=== PATIENT | female | born 1990 | race Caucasian/White ===

== ENCOUNTER 2021-05-18 19:45 | Inpatient (IN) | payer MEDICAID ==
--- NOTE | 2021-05-18 23:32 | History and Physical Report ---
History of Present Illness Date of examination: 05/18/21 Date of admission: 05/18/21 Chief complaint: SROM at 7am today History of present illness: at 39.4wks by LMP c/w U/S. care done at [facility]. Pt had SROM at 7am at home and did not come to hospital as recommend. Pt admits to movement and denies vaginal bleeding. Denies headache. Past History Past Medical History: other (anemia) Past Surgical History: no surgical history Family/Genetic History: none Social history: no significant social history - Obstetrical History Expected Date of Delivery: 05/21/21 Actual Gestation: 39 Week(s) 5 Day(s) : 1 Para: 0 Number of Living Children: 0 Medications and Allergies Allergies Allergy/AdvReac Type Severity Reaction Status Date / Time No Known Allergies Allergy Verified 05/18/21 23:40 Review of Systems All systems: negative (leakage of fluid) - Vital Signs Vital signs: Vital Signs Temp Pulse Resp BP Pulse Ox 98.6 F 87 16 121/83 99 05/18/21 20:35 05/18/21 20:35 05/18/21 20:35 05/18/21 20:35 05/18/21 20:35 Temp Pulse Resp BP Pulse Ox 98.6 F 91 H 16 121/83 98 05/18/21 20:35 05/18/21 23:21 05/18/21 20:35 05/18/21 20:35 05/18/21 23:21 - Physical Exam Breasts: Positive: deferred Cardiovascular: Regular rate Lungs: Positive: Normal air movement Abdomen: Positive: normal appearance, soft Genitourinary (Female): Positive: normal external genitalia Extremities: Positive: normal - Obstetrical FHR: category 1 Uterine Contraction Monitor Mode: External Cervical Dilatation: 1 Cervical Effacement Percentage: 70 station: -3 Uterine Contraction Pattern: Regular Uterine Contraction Intensity: Mild Results Result Diagrams: 05/18/21 23:50 Abnormal lab results 05/18/21 Range/Units 21:10 Membranes Rupture Positive A (Negative) All other labs normal. Assessment and Plan Term with SROM almost 18hrs at home, GBS negative 1. Admit to labor and delivery 2. augment with pitocin 3. Start Amp for prolong rupture of membranes 4. May have IV pain med or epidural when desired Expect
[2021-05-18] MEDS ORDERED: miSOPROStol 200 MCG TAB PR PRN (23:34)
[2021-05-18] MEDS ORDERED: ONDANSETRON 4 MG/2 ML INJ IV PRN (23:34)
[2021-05-18] MEDS ORDERED: METHYLERGONOVINE MALEATE 0.2 MG/ML VIAL IM PRN (23:34)
[2021-05-18] MEDS ORDERED: NalbUPHINE 10 MG/1 ML INJ IV PRN (23:34)
[2021-05-18] MEDS ORDERED: AMPICILLIN/NS 2 GM/100 ML 2 GM/100 ML BAG IV ONE (23:34)
[2021-05-18] MEDS ORDERED: OXYTOCIN 10 UNIT/1 ML INJ IM PRN (23:34)
[2021-05-18] MEDS ORDERED: PROMETHAZINE 25 MG TAB PO PRN (23:34)
[2021-05-18] MEDS ORDERED: ePHEDrine SULFATE 50 MG/1 ML INJ IV PRN (23:34)
[2021-05-18] MEDS ORDERED: MINERAL OIL 30 ML ORAL LIQD PO PRN (23:34)
[2021-05-18] MEDS ORDERED: fentaNYL 100 MCG/2 ML INJ IV PRN (23:34)
[2021-05-18] MEDS ORDERED: TERBUTALINE 1 MG/1 ML INJ SUB-Q PRN (23:34)
[2021-05-18] MEDS ORDERED: CARBOPROST TROMETHAMINE 250 MCG/1 ML INJ IM PRN (23:34)
[2021-05-18] MEDS ORDERED: LOPERAMIDE 2 MG CAP PO PRN (23:34)
[2021-05-18] MEDS ORDERED: LIDOCAINE (2%) 20 MG/1 ML VIAL 20 ML MDV INFILTRATI ONE (23:34)
[2021-05-18] MEDS ORDERED: OXYTOCIN DRIP 30 UNITS/500 ML BAG IV SCH ×2 (23:45)
[2021-05-19 00:44] LABS: Hemoglobin 10.9 gm/dl (10.1-14.3); Mean Corpuscular HGB Conc 34 % (30-34); Mean Corpuscular Volume 88 fl (79-97); Platelet Count 259 K/mm3 (140-440); Red Blood Count 3.63 M/mm3 (3.65-5.03); Red Cell Distribution Width 15.8 % (13.2-15.2)
[2021-05-19] MEDS: AMPICILLIN/NS 1 GM/50 ML 1 GM/50 ML BAG IV SCH ×2 (05:01→13:22)
--- NOTE | 2021-05-19 06:56 | Event Note ---
Date: 05/19/21 pt evaluated and having painful ctx inspite of IV pain med. Nurse states pt to receive epidural now. Pelvic /-3 and Ctx every 3-4mins and pt has received PCN x2 doses. FHR category I. Expect .
[2021-05-19] MEDS ORDERED: ePHEDrine SULFATE 50 MG/1 ML INJ IV PRN (07:33)
[2021-05-19] MEDS ORDERED: ONDANSETRON 4 MG/2 ML INJ IV PRN (07:33)
[2021-05-19] MEDS ORDERED: diphenhydrAMINE 50 MG/ML VIAL IV PRN (07:33)
[2021-05-19] MEDS ORDERED: NalbUPHINE 10 MG/1 ML INJ IV PRN (07:33)
[2021-05-19] MEDS ORDERED: NALOXONE 2 MG/2 ML INJ IV PRN (07:33)
[2021-05-19] MEDS ORDERED: LACTATED RINGERS 250 ML IV SOLN IV ONE (07:33)
--- NOTE | 2021-05-19 07:34 | Anesthesia Consultation ---
Anesthesia Consult and Med Hx Date of service: 05/19/21 - Airway Anesthetic Teeth Evaluation: Good ROM Head & Neck: Adequate Mental/Hyoid Distance: Adequate Mallampati Class: Class II Intubation Access Assessment: Probably Good - Pulmonary Exam CTA: Yes - Cardiac Exam Cardiac Exam: RRR - Pre-Operative Health Status ASA Pre-Surgery Classification: ASA2 Proposed Anesthetic Plan: Epidural - Pulmonary Hx Smoking: No Hx Asthma: No COPD: No Hx Pneumonia: No Hx Sleep Apnea: No - Cardiovascular System Hx Hypertension: No Hx Heart Attack/AMI: No Hx Angina: No - Gastrointestinal Hx Gastroesophageal Reflux Disease: No - Endocrine Hx Renal Disease: No Hx End Stage Renal Disease: No Hx Liver Disease: No Hx Insulin Dependent Diabetes: No Hx Non-Insulin Dependent Diabetes: No - Other Systems Hx Alcohol Use: No
--- NOTE | 2021-05-19 07:35 | Progress Note ---
Labor Epidural - Labor Epidural Start Time: 07:20 Stop Time: 07:33 Performed by:: SANDRINE VÁSQUEZ ([facility] Procedure: Patient is requesting epidural for labor and pain. H&P, labs were reviewed. Patient IDed, H&P reviewed, all questions and concerns were answered, and consent was signed. Timeout was performed at bedside. Patient in sitting position. Sterile prep and drape was performed. 3ml of 1% lidocaine skin wheal at L[3]- L [4]. 18-gauge Alter Eco epidural needle was advanced to loss of resistance with air technique 6cm. Negative CSF negative blood. Epidural catheter advanced to [11] centimeters. [negative] Aspiration [negative] test dose. Sterile dressing applied. Patient tolerated procedure.
[2021-05-19] MEDS: fentaNYL-BUPIV 2 MCG/ML-0.125% 200 MCG/100 ML BAG EPIDURAL SCH ×2 (08:14→18:02)
[2021-05-19] MEDS: LACTATED RINGERS 1,000 ML IV SCH ×4 (08:14→15:43)
--- NOTE | 2021-05-19 09:28 | Event Note ---
Date: 05/19/21 Small amount of blood seen on pad so performed SVE. SVE /-2. Abdomen palpates soft. IUPC placed to better evaluate contractions. IUPC went in easily with no blood seen with placement. Changed dahiana pad and will monitor closely. Consulted Dr. España re: small amount of vaginal bleeding and interventions taken.
[2021-05-19 11:43] LABS: Hepatitis C Virus Antibody Nonreactive (NonReactive)
--- NOTE | 2021-05-19 12:19 | Event Note ---
Date: 05/19/21 Came and saw patient and reviewed FHR tracing. Late decelerations of FHR noted; moderate to minimal variability. SVE cervix unchanged; irregular contractions. Uterus and abdomen palpate soft. Bloody show noted. Pitocin discontinued and patient repositioned to left lateral position. Oxygen per face mask at [address] España at 12:10 pm and notified her of FHR tracing and late decelerations, heavy bloody show, and inerventions taken. Dr. España ordered stat CBC and orders put in/lab notified. Temp. 98.4.
--- NOTE | 2021-05-19 13:51 | Event Note ---
Date: 05/19/21 FHR baseline 150-155 with minimal to moderate variability and periodic late decelerations despite interventions. Called Dr. España and informed her of FHR tracing, vaginal bleeding, cervical exam, interventions taken. Requested that Dr. España come in and expedite delivery. BPP ordered per Dr. España request.
--- NOTE | 2021-05-19 14:59 | Ultrasound Report ---
ULTRASOUND BIOPHYSICAL PROFILE OB ULTRASOUND INDICATION: EFW. COMPARISON: None available. FINDINGS: breathing movement = 2 Gross body movement = 2 tone = 2 Qualitative amniotic fluid volume = 2 Total biophysical score = 8/8 Presentation is Cephalic. heart rate is 138 beats per minute. Biparietal diameter 9.7 cm, 39 weeks 4 days Head circumference 32.6 cm, 37 weeks 0 days Abdominal circumference 32.6 cm, 36 weeks 4 days Femur length 7.5 cm, 38 weeks 3 days Estimated weight at this time is 7 lbs. 1 oz. IMPRESSION: 1. biophysical profile = /8 2. Estimated weight at this time is 7 pounds, 1 ounce. Signer Name: Freddie Goldstein MD Signed: 05/19/2021 2:55 PM Workstation Name: [id number]
[2021-05-19] MEDS: ACETAMINOPHEN 325 MG TAB PO PRN ×2 (15:28→23:46)
[2021-05-19] MEDS: GENTAMICIN 100 MG in SODIUM CHLORIDE 0.9% 100 ML IV SCH ×2 (15:42→23:46)
[2021-05-19 17:26] LABS: Hematocrit 32.1 % (30.3-42.9); Hemoglobin 11.1 gm/dl (10.1-14.3); Mean Corpuscular HGB Conc 35 % (30-34); Mean Corpuscular Volume 87 fl (79-97); Platelet Count 246 K/mm3 (140-440); Red Blood Count 3.69 M/mm3 (3.65-5.03); Red Cell Distribution Width 15.7 % (13.2-15.2)
[2021-05-19] MEDS ORDERED: AMPICILLIN/NS 2 GM/100 ML 2 GM/100 ML BAG IV SCH (18:00)
--- NOTE | 2021-05-19 18:01 | Event Note ---
Date: 05/19/21 Gentamicin ordered at 15:15 due to temp of 99 and increase FHR baseline. Patient is receiving ampicillin and gentamicin and has received Tylenol. Pitocin augmentation of labor continues. FHR with mild tachycardia (165-170) and MD has been notified. Cervix is now 8/80/-1.
[2021-05-19 18:05] LABS: Alanine Aminotransferase 7 units/L (7-56); Albumin 2.8 g/dL (3.9-5); BUN/Creatinine Ratio 20; Blood Urea Nitrogen 10 mg/dL (7-17); Hemolysis Index 11
[2021-05-19] MEDS ORDERED: ACETAMINOPHEN 325 MG TAB PO ONE (18:17)
--- NOTE | 2021-05-19 20:43 | Event Note ---
Date: 05/19/21 E .
[2021-05-20] MEDS ORDERED: WITCH HAZEL/ GLYCERIN PAD TP PRN ×2 (01:42→01:53)
[2021-05-20] MEDS ORDERED: LANOLIN/ZINC/DIMETHICONE (LANSINOH) 7 GM TP PRN (01:42)
--- NOTE | 2021-05-20 01:46 | Procedure Note ---
OB Delivery Note - Delivery Date of Delivery: 05/20/21 Surgeon: VARUN BOONE - Vaginal Delivery presentation: vertex Delivery position: OA Intrapartum events: prolonged labor- > = 20hr, shoulder dystocia, other(please specify) (prolonged rupture of membranes; suspected chorioamnionitis) Delivery induction: none Delivery augmentation: pitocin Delivery monitor: external FHT, external uterine, internal uterine Route of delivery: Delivery placenta: spontaneous Delivery cord: nuchal cord, 3 umbilical vessels Delivery laceration: 3rd degree (3rd degree perineal laceration repaired by Dr. España; please see Dr. España note) Delivery repair: vicryl Anesthesia: epidural Delivery comments: Spontaneous vaginal delivery at 00:41 of liveborn female weighing 3.72 kg over 3rd degree perineal laceration with apgars of 8/9. Epidural anesthesia. Nuchal cord times 1, manually reduced. Mild shoulder dystocia resolved by delivery of posterior arm. Baby placed skin to skin with mom immediately after delivery. Baby dried with towels and suctioned with bulb syringe. Spontaneous cry and respirations. 3 vessel cord double clamped and cut. Baby taken to radiant warmer for further suctioning and evaluation. Spontaneous delivery of intact placenta and membranes by Dr. España. Pitocin to IV fluids after delivery of placenta. Fundus firm and midline. QBL being calculated by patient's nurse. 3rd degree perineal laceration repaired by Dr. España (see Dr. España note). Sponge count correct. Mother and baby stable. Dr. España present in room during pushing and delivery of baby.
--- NOTE | 2021-05-20 01:51 | Event Note ---
Date: 05/20/21 I was present for the delivery done by DAREN Curtis. pt sustained "M' shaped perineal laceration that extended to 3rd degree laceration confirmed with rectovaginal exam. Anal sphincter repaired with interrupted 0-vicryl suture. M shaped vaginal mucosa laceration reapproximated using 2-0 chromic running locked suture and the remaining perineal muscles with good hemostasis. Pt counseled nothing per rectum and reynolds cath to be replaced with hematuria prior to delivery. Ancef 2gm to be given with inflammed perineal tissue and protracted labor with chorioamnionitis. Pt had epidural with good effective for the entire repair. Pt not to have sitz bath . Pt to get dermoplast on day #1. Pt stable and doing fine.
[2021-05-20] MEDS ORDERED: BENZOCAINE/MENTHOL 20/0.5% TOP SPRAY 56 GM TP PRN (01:52)
[2021-05-20 08:13] LABS: Bacteria,Urine 1+ /HPF (Negative); Bilirubin,Urine NEG (Negative); Blood,Urine LG (Negative); Color,Urine Yellow (Yellow)
[2021-05-20 08:28] LABS: WBC,Urine < 1.0 /HPF (0.0-6.0)
[2021-05-20] MEDS: DOCUSATE SODIUM 100 MG CAP PO SCH ×2 (09:20→23:14)
--- NOTE | 2021-05-20 09:56 | Post Anesthesia Evaluation ---
- Post Anesthesia Evaluation Patient Participated: Yes Airway Patent: Yes Stable Respiratory Function: Yes Nausea/Vomiting: No Temp > 96.8F: Yes Pain Manageable: Yes Adequeate Hydration: Yes Anesthesia Complications: No Block Receding Appropriately: No (Patient is still weak bilaterally. Will return to check on her later today to reevaluate.) Patient on Ventilator: No
[2021-05-20] MEDS: LACTATED RINGERS 1,000 ML IV SCH (11:17)
[2021-05-20] MEDS: IBUPROFEN 600 MG TAB PO SCH ×3 (11:25→23:14)
[2021-05-20] MEDS: HYDROcodone/ACETAMINOPHEN 5-325 MG TAB PO PRN ×2 (11:25→17:52)
[2021-05-20] MEDS ORDERED: HYDROCORTISONE 25 MG RECTAL SUPP PR PRN (12:00)
[2021-05-20 15:29] LABS: Hematocrit 25.7 % (30.3-42.9); Hemoglobin 8.5 gm/dl (10.1-14.3)
--- NOTE | 2021-05-20 16:09 | Event Note ---
Date: 05/20/21 Rebroadened antibiotics to amp and gent for presumed chorioamnonitis
[2021-05-20] MEDS: AMPICILLIN/NS 2 GM/100 ML 2 GM/100 ML BAG IV SCH ×2 (17:10→23:20)
[2021-05-20] MEDS: GENTAMICIN/NS 100 MG/100 ML 100 MG/100 ML BAG IV SCH (18:14)
[2021-05-21] MEDS: GENTAMICIN/NS 100 MG/100 ML 100 MG/100 ML BAG IV SCH ×4 (02:16→18:06)
[2021-05-21] MEDS: IBUPROFEN 600 MG TAB PO SCH ×3 (05:16→21:54)
[2021-05-21] MEDS: AMPICILLIN/NS 2 GM/100 ML 2 GM/100 ML BAG IV SCH ×3 (05:17→18:06)
[2021-05-21] MEDS: DOCUSATE SODIUM 100 MG CAP PO SCH ×2 (10:15→21:54)
--- NOTE | 2021-05-21 12:28 | Post Anesthesia Evaluation ---
- Post Anesthesia Evaluation Patient Participated: Yes Airway Patent: Yes Stable Respiratory Function: Yes Nausea/Vomiting: No Temp > 96.8F: Yes Pain Manageable: Yes Adequeate Hydration: Yes Anesthesia Complications: No Block Receding Appropriately: Yes (Pt has full sensation and moderate strength back in her LE, but still feels she is too weak to walk. Discussed with her provider and will place additional orders.) Patient on Ventilator: No
[2021-05-21] MEDS: HYDROcodone/ACETAMINOPHEN 5-325 MG TAB PO PRN (14:37)
--- NOTE | 2021-05-21 15:01 | XRay Report ---
X-RAY BILATERAL HIPS 2 VIEWS WITH PELVIS INDICATION / CLINICAL INFORMATION: PPD#1 vag delivery, can't ambulate; coccyx fractu COMPARISON: None available. FINDINGS: BONES / JOINT(S): There is marked diastasis of the pubic symphysis, with 3.5 cm of separation between the pubic bones. Otherwise, no acute displaced fracture identified. There is no significant arthriti s. SOFT TISSUES: No significant abnormality. ADDITIONAL FINDINGS: None. IMPRESSION: 1. Marked pubic symphysis diastasis. Signer Name: Annie Saeed MD Signed: 05/21/2021 2:57 PM Workstation Name: [id number]
--- NOTE | 2021-05-21 15:03 | XRay Report ---
X-RAY SPINE SACRUM/COCCYX, 2 VIEWS INDICATION / CLINICAL INFORMATION: pain in hip after vag del/possible coccyx fracture COMPARISON: Hip radiograph same day FINDINGS: BONES / JOINT(S): Marked diastases of the pubic symphysis with approximately 3.5 cm of separation. Ot herwise, no acute displaced fracture identified. SOFT TISSUES: No significant abnormality. ADDITIONAL FINDINGS: None. IMPRESSION: 1. Marked pubic symphysis diastasis. Signer Name: Annie Saeed MD Signed: 05/21/2021 2:59 PM Workstation Name: [id number]
--- NOTE | 2021-05-21 16:51 | Progress Note ---
Assessment and Plan PPD#1 with marked pubis diastases 1. 2 view pelvic xray with marked diastases. Consult to be done to ortho pedics vs gen surgery if ortho not available 2. Pt to get pelvic girdle and pain mgt and physical therapy until evaluation done 3. Will give iron supplement and vitamin C for asymptomatic anemia 4. Routine care Subjective Date of service: 05/21/21 Principal diagnosis: PPD#1 with marked pubic diastases Interval history: nurse called me stating patient unable to ambulate due to pain at hips. Vag bleed small. Diet tolerated. pt sitting in chair and too painful to return to bed at this time. Objective - Constitutional Vitals: Vital Signs - 12hr 05/21/21 05/21/21 05/21/21 05:16 06:16 08:02 Temperature 97.9 F Pulse Rate 105 H Respiratory 18 18 19 Rate Blood Pressure 102/59 O2 Sat by Pulse 96 Oximetry 05/21/21 12:25 Temperature 98.4 F Pulse Rate 110 H Respiratory 18 Rate Blood Pressure 90/58 O2 Sat by Pulse 97 Oximetry General appearance: Present: mild distress - Respiratory Respiratory effort: normal - Cardiovascular Rhythm: regular Extremities: No edema - Genitourinary Female genitourinary: other (Fundus firm, non-tender below umbilicus) - Neurologic Neurologic: other (diminished movement of lower extremities when ambulant) - Psychiatric Psychiatric: cooperative - Labs CBC & Chem 7: 05/20/21 15:14 05/19/21 17:15 Medications & Allergies - Medications Allergies/Adverse Reactions: Allergies No Known Allergies Allergy (Verified 05/18/21 23:40) Home Medications: Home Medications Medication Instructions Recorded Confirmed Last Taken Type No Known Home Medications [No 05/20/21 05/20/21 Unknown History Reported Home Medications] Active Medications: Generic Name Dose Route Start Last Admin Trade Name Freq PRN Reason Stop Dose Admin Acetaminophen 650 mg 05/18/21 23:34 05/19/21 23:46 Acetaminophen 325 Mg Tab PO 650 mg Q4H PRN Administration Pain, Mild (1-3) Hydrocodone Bitart/Acetaminophen 2 each 05/20/21 01:42 05/20/21 17:52 Hydrocodone/Acetaminophen 5-325 Mg Tab PO 2 each Q6H PRN Administration Pain, Moderate (4-6) Benzocaine/Menthol 1 spray 05/20/21 01:52 05/20/21 12:08 Benzocaine/Menthol 20/0.5% Top [place] 56 Gm TP 1 spray TID PRN Administration Pain, Mild (1-3) Carboprost Tromethamine 250 mcg 05/18/21 23:34 Carboprost Tromethamine 250 Mcg/1 Ml Inj IM ONCE PRN Uterine Bleeding Diphenhydramine HCl 12.5 mg 05/19/21 07:33 Diphenhydramine 50 Mg/Ml Vial IV Q2H PRN Itching Docusate Sodium 100 mg 05/20/21 02:00 05/21/21 10:15 Docusate Sodium 100 Mg Cap PO 100 mg BID KATHY Administration Ephedrine Sulfate 10 mg 05/19/21 07:33 Ephedrine Sulfate 50 Mg/1 Ml Inj IV Q2M PRN Hypotension Hydrocortisone Acetate 25 mg 05/20/21 12:00 Hydrocortisone 25 Mg Rectal Supp OR BID PRN Hemorrhoids Oxytocin/Sodium Chloride 30 units in 500 mls @ 2 mls/hr 05/18/21 23:45 19:00 Pitocin/Ns 30 Unit/500ml IV 4 ml/hr TITR KATHY 4 mls/hr Titration Protocol Lactated Ringer's 1,000 mls @ 125 mls/hr 05/18/21 23:45 05/20/21 11:17 Lactated Ringers IV 125 mls/hr DIRECT KATHY Administration Oxytocin/Sodium Chloride 30 units in 500 mls @ 40 mls/hr 05/18/21 23:45 Pitocin/Ns 30 Unit/500ml IV TITR KATHY Protocol Fentanyl/Bupivacaine/Sodium Chlor 200 mcg in 100 mls @ 12 mls/hr 05/19/21 08:00 05/19/21 18:02 Fentanyl-Bupiv 2 Mcg/Ml-0.125% EPIDURAL 12 mls/hr TITR KATHY Administration Protocol Ampicillin Sodium 2 gm in 100 mls @ 100 mls/hr 05/20/21 17:00 05/21/21 11:24 Ampicillin/Ns 2 Gm/100 Ml IV 100 mls/hr Q6H KATHY Administration Protocol Gentamicin Sulfate/Sodium Chloride 100 mg in 100 mls @ 200 mls/hr 05/20/21 18:00 05/21/21 10:14 Gentamicin/Ns 100 Mg/100 Ml IV 200 mls/hr Q8H KATHY Administration Ibuprofen 600 mg 05/20/21 02:00 05/21/21 05:16 Ibuprofen 600 Mg Tab PO 600 mg Q6H KATHY Administration Loperamide HCl 2 mg 05/18/21 23:34 Loperamide 2 Mg Cap PO ONCE PRN give with Hemabate Methylergonovine Maleate 0.2 mg 05/18/21 23:34 Methylergonovine Maleate 0.2 Mg/Ml Vial IM ONCE PRN Uterine Bleeding Multi-Ingredient Ointment 1 applic 05/20/21 01:42 Lanolin/Zinc/Dimethicone (Lansinoh) 7 Gm TP PRN PRN Sore Nipples Nalbuphine HCl 2.5 mg 05/19/21 07:33 Nalbuphine 10 Mg/1 Ml Inj IV Q2H PRN Itching Naloxone HCl 0.2 mg 05/19/21 07:33 Naloxone 2 Mg/2 Ml Inj IV Q5M PRN Respiratory sedation Ondansetron HCl 4 mg 05/19/21 07:33 Ondansetron 4 Mg/2 Ml Inj IV Q8H PRN Nausea And Vomiting Oxytocin 10 unit 05/18/21 23:34 Oxytocin 10 Unit/1 Ml Inj IM ONCE PRN Uterine Bleeding Sodium Chloride 10 ml 05/20/21 02:00 Sodium Chloride 0.9% 10 Ml Flush Syringe IV PRN PRN LINE FLUSH Witch Kathy/Glycerin 1 each 05/20/21 01:53 05/20/21 16:19 Witch Kathy/ Glycerin Pad TP 1 each PRN PRN Administration Hemorrhoids
[2021-05-21] MEDS ORDERED: FERROUS SULFATE 325 MG TAB PO SCH (22:00)
[2021-05-21] MEDS: ASCORBIC ACID 500 MG TAB PO SCH (22:02)
[2021-05-22] MEDS: AMPICILLIN/NS 2 GM/100 ML 2 GM/100 ML BAG IV SCH ×2 (00:31→06:18)
[2021-05-22] MEDS: LACTATED RINGERS 1,000 ML IV SCH (01:05)
[2021-05-22] MEDS: GENTAMICIN/NS 100 MG/100 ML 100 MG/100 ML BAG IV SCH (02:19)
[2021-05-22] MEDS: HYDROcodone/ACETAMINOPHEN 5-325 MG TAB PO PRN ×2 (03:09→13:39)
[2021-05-22] MEDS: IBUPROFEN 600 MG TAB PO SCH ×4 (06:19→17:55)
--- NOTE | 2021-05-22 10:08 | Event Note ---
Date: 05/22/21 plan for scheduled NSAIDS and tylenol PT if unable to ambulate Pelvic girdle and pelvic rest does not need Gen Surgery at this time, will re-evaluate in period. Saeid Dai MD
[2021-05-22] MEDS: ASCORBIC ACID 500 MG TAB PO SCH ×2 (10:15→22:12)
--- NOTE | 2021-05-22 10:59 | Progress Note ---
Assessment and Plan A: PP Day #2 Pubic Diastases Asymptomatic Anemia P: Follow Routine Orders Pelvic Girdle and Pelvic Rest Physical Therapy Consult Tylenol 650mg PO q 4 hours/Motrin 600mg q [address] Dai Infed 100mg Im x 1 dose Subjective - Subjective Date of service: 05/22/21 Principal diagnosis: PPD#1 with marked pubic diastases Patient reports: appetite normal, voiding normally, pain poorly controlled, other (Unable to properly ambulate due to pubic diastases, able to ambulate backwards better than forward) [place]: doing well, bottle feeding Objective - Vital Signs Latest vital signs: Vital Signs Temp Pulse Resp BP Pulse Ox Pulse Ox 05/22/21 08:31 97.8 F 102 H 18 105/69 97 05/22/21 08:26 100 05/22/21 06:19 18 05/22/21 03:09 18 05/22/21 00:26 98.4 F 101 H 18 99/66 97 05/21/21 22:15 100 05/21/21 21:54 18 05/21/21 18:21 100 05/21/21 16:51 100 05/21/21 15:31 98.2 F 104 H 18 110/65 93 05/21/21 14:00 100 05/21/21 12:25 98.4 F 110 H 18 90/58 97 05/21/21 12:00 100 Intake and Output 05/21/21 05/22/21 05/22/21 22:59 06:59 14:59 Intake Total 560 100 Output Total 500 Balance 560 100 -500 Intake: IV 200 100 AMPICILLIN/NS 2 GM/100 ML 100 100 2 gm In 100 ml @ 100 mls /hr IV Q6H KATHY Rx#: [id number] GENTAMICIN/NS 100 MG/100 100 ML 100 mg In 100 ml @ 200 mls/hr IV Q8H KATHY Rx#: [id number] Oral 360 Output: Urine 500 Void 500 Other: Total, Intake Amount 240 Total, Output Amount 500 # Voids Indwelling Catheter 1 Void 1 - Exam Breasts: Present: normal Cardiovascular: Present: Regular rate Lungs: Present: Clear to auscultation, Normal air movement Abdomen: Present: normal appearance, soft, normal bowel sounds Uterus: Present: normal, firm, fundal height above umbilicus Extremities: Present: normal
[2021-05-22] MEDS ORDERED: ACETAMINOPHEN 325 MG TAB PO PRN (11:00)
[2021-05-22] MEDS: ACETAMINOPHEN 325 MG TAB PO SCH ×3 (11:20→22:13)
[2021-05-22] MEDS ORDERED: IRON DEXTRAN COMPLEX 100 MG/2 ML INJ IM SCH (12:00)
[2021-05-22] MEDS: DOCUSATE SODIUM 100 MG CAP PO SCH ×2 (13:37→22:12)
[2021-05-23] MEDS: ACETAMINOPHEN 325 MG TAB PO SCH ×3 (03:00→11:34)
[2021-05-23] MEDS: IBUPROFEN 600 MG TAB PO SCH ×2 (05:00→11:34)
[2021-05-23] MEDS: ASCORBIC ACID 500 MG TAB PO SCH (09:38)
[2021-05-23] MEDS: DOCUSATE SODIUM 100 MG CAP PO SCH (09:38)
--- NOTE | 2021-05-23 10:18 | Progress Note ---
Assessment and Plan A: S/P with pubic diastases Pt has no insurance P:Continue routine pp orders Obtain walker for ambulation Case mtg re home help with ambulation Will d/c home once home help issue is resolved Subjective - Subjective Date of service: 05/23/21 Principal diagnosis: PPD#1 with marked pubic diastases Patient reports: appetite normal, voiding normally, pain well controlled, other (poor ambulation) [place]: doing well, bottle feeding Objective - Vital Signs Latest vital signs: Vital Signs Temp Pulse Resp BP Pulse Ox Pulse Ox 05/23/21 08:04 98.3 F 113 H 20 113/73 96 05/23/21 07:45 98 05/23/21 00:40 112 H 05/23/21 00:05 98.1 F 124 H 18 120/72 96 05/22/21 21:00 100 05/22/21 18:37 100 05/22/21 16:39 98.0 F 102 H 18 115/77 98 05/22/21 16:00 100 05/22/21 12:00 100 Intake and Output 05/22/21 05/23/21 05/23/21 22:59 06:59 14:59 Intake Total 120 Output Total 300 Balance -300 120 Intake: Oral 120 Output: Urine 300 Void 300 Other: Total, Intake Amount 120 Total, Output Amount 300 # Voids Void 1 1 - Exam Breasts: Present: normal Abdomen: Present: normal appearance, soft, normal bowel sounds Vulva: both: normal Uterus: Present: normal, firm, fundal height below umbilicus Extremities: Present: normal Incision: Present: normal, intact
[2021-05-23] MEDS ORDERED: FERROUS SULFATE 325 MG TAB PO SCH (12:00)
--- NOTE | 2021-05-23 13:51 | Event Note ---
Date: 05/23/21 [employer] contacted the ortho surgeon and he will come and see pt before d/c home.
[2021-05-23 14:05] LABS: Hematocrit 23.7 % (30.3-42.9); Mean Corpuscular HGB Conc 34 % (30-34); Mean Corpuscular Volume 87 fl (79-97); Platelet Count 309 K/mm3 (140-440); Red Blood Count 2.72 M/mm3 (3.65-5.03); Red Cell Distribution Width 15.7 % (13.2-15.2)
--- NOTE | 2021-05-23 14:49 | Consultation ---
History of Present Illness - [facility] Consult date: 05/23/21 Consult reason: joint pain History of present illness: 31 y/o female with c/o anterior pelvic pain following delivery of her 1st child, plain xrays taken reveal 3.5 cm diastasis at symphsis... Past History Social history: no significant social history Medications and Allergies Allergies Allergy/AdvReac Type Severity Reaction Status Date / Time No Known Allergies Allergy Verified 05/18/21 23:40 Home Medications Medication Instructions Recorded Confirmed Last Taken Type No Known Home Medications [No 05/20/21 05/20/21 Unknown History Reported Home Medications] Active Meds: Active Medications Acetaminophen (Acetaminophen 325 Mg Tab) 650 mg PO Q4H [facility] Last Admin: 05/23/21 11:34 Dose: 650 mg Documented by: Hydrocodone Bitart/Acetaminophen (Hydrocodone/Acetaminophen 5-325 Mg Tab) 2 each PO Q6H PRN PRN Reason: Pain, Moderate (4-6) Last Admin: 05/22/21 13:39 Dose: 2 each Documented by: Ascorbic Acid (Ascorbic Acid 500 Mg Tab) 500 mg PO BID [facility] Last Admin: 05/23/21 09:38 Dose: 500 mg Documented by: Benzocaine/Menthol (Benzocaine/Menthol 20/0.5% Top [place] 56 Gm) 1 spray TP TID PRN PRN Reason: Pain, Mild (1-3) Last Admin: 05/20/21 12:08 Dose: 1 spray Documented by: Carboprost Tromethamine (Carboprost Tromethamine 250 Mcg/1 Ml Inj) 250 mcg IM ONCE PRN PRN Reason: Uterine Bleeding Diphenhydramine HCl (Diphenhydramine 50 Mg/Ml Vial) 12.5 mg IV Q2H PRN PRN Reason: Itching Docusate Sodium (Docusate Sodium 100 Mg Cap) 100 mg PO BID [facility] Last Admin: 05/23/21 09:38 Dose: 100 mg Documented by: Ephedrine Sulfate (Ephedrine Sulfate 50 Mg/1 Ml Inj) 10 mg IV Q2M PRN PRN Reason: Hypotension Ferrous Sulfate (Ferrous Sulfate 325 Mg Tab) 325 mg PO BID [facility] Last Admin: 05/23/21 11:34 Dose: 325 mg Documented by: Hydrocortisone Acetate (Hydrocortisone 25 Mg Rectal Supp) 25 mg [place] BID PRN PRN Reason: Hemorrhoids Oxytocin/Sodium Chloride (Pitocin/Ns 30 Unit/500ml) 30 units in 500 mls @ 2 mls/hr IV TITR KATHY; Protocol Last Titration: 05/19/21 19:00 Dose: 4 ml/hr, 4 mls/hr Documented by: Lactated Ringer's (Lactated Ringers) 1,000 mls @ 125 mls/hr IV DIRECT KATHY Last Admin: 05/22/21 01:05 Dose: 125 mls/hr Documented by: Oxytocin/Sodium Chloride (Pitocin/Ns 30 Unit/500ml) 30 units in 500 mls @ 40 m ls/hr IV TITR KATHY; Protocol Fentanyl/Bupivacaine/Sodium Chlor (Fentanyl-Bupiv 2 Mcg/Ml-0.125%) 200 mcg in 100 mls @ 12 mls/hr EPIDURAL TITR KATHY; Protocol Last Admin: 05/19/21 18:02 Dose: 12 mls/hr Documented by: Ibuprofen (Ibuprofen 600 Mg Tab) 600 mg PO Q6H KATHY Last Admin: 05/23/21 11:34 Dose: 600 mg Documented by: Loperamide HCl (Loperamide 2 Mg Cap) 2 mg PO ONCE PRN PRN Reason: give with Hemabate Methylergonovine Maleate (Methylergonovine Maleate 0.2 Mg/Ml Vial) 0.2 mg IM ONCE PRN PRN Reason: Uterine Bleeding Multi-Ingredient Ointment (Lanolin/Zinc/Dimethicone (Lansinoh) 7 Gm) 1 applic TP PRN PRN PRN Reason: Sore Nipples Nalbuphine HCl (Nalbuphine 10 Mg/1 Ml Inj) 2.5 mg IV Q2H PRN PRN Reason: Itching Naloxone HCl (Naloxone 2 Mg/2 Ml Inj) 0.2 mg IV Q5M PRN PRN Reason: Respiratory sedation Ondansetron HCl (Ondansetron 4 Mg/2 Ml Inj) 4 mg IV Q8H PRN PRN Reason: Nausea And Vomiting Oxytocin (Oxytocin 10 Unit/1 Ml Inj) 10 unit IM ONCE PRN PRN Reason: Uterine Bleeding Sodium Chloride (Sodium Chloride 0.9% 10 Ml Flush Syringe) 10 ml IV PRN PRN PRN Reason: LINE FLUSH Witch Kathy/Glycerin (Witch Kathy/ Glycerin Pad) 1 each TP PRN PRN PRN Reason: Hemorrhoids Last Admin: 05/20/21 16:19 Dose: 1 each Documented by: Physical Examination - Physical exam Narrative exam: Pelvis - pelvic binder in place, tender along anterior border, distal n/v intact... Eyes: PERRL ENT: Positive: clear oral mucosa Respiratory effort: normal Respiratory: bilateral: CTA Rhythm: regular Heart Sounds: Positive: S1 & S2 General gastrointestinal: Positive: soft, non-tender, non-distended, normal bowel sounds Integumentary: clear, warm, dry Neurologic: Positive: CNII-XII intact, moves all extremities, gait normal. Negative: focal deficits Assessment and Plan Pubic Diastasis from recommend conservative treatment with pelvic binder, walker for assisted ambulation, and PT....
[2021-05-23 16:53] VITALS: BP 119/81
--- NOTE | 2021-05-23 17:02 | Event Note ---
Date: 05/23/21 Pt was cleared by PT and ortho for d/c home. Dr Abdalla agrees with plan.
--- NOTE | 2021-05-23 17:07 | Discharge Summary ---
Providers - Providers Date of Admission: 05/19/21 01:49 Date of discharge: 05/23/21 Attending physician: DOUG AVALOS 05/21/21 12:28 Physical Therapy Evaluation and Treat [CONS] Urgent Comment: Reason For Exam: Post delivery/epidural B lower extremity weakness. 05/21/21 16:44 Consult to Physician [CONS] Urgent Comment: Consulting Provider: TEN SLOAN Physician Instructions: Reason For Exam: marked pubic diastases, PPD#1 vag delivery 05/21/21 17:25 Physical Therapy Evaluation and Treat [CONS] Routine Comment: Reason For Exam: marked pubic diastases 05/23/21 09:44 Consult to Case Management [CONS] Routine Services Needed at Discharge: DME Equipment Notified:: yes Phone number called:: [phone] Comment:: needs rolling walker for d/c Primary care physician: DOUG AVALOS Hospitalization Reason for admission: active labor, IUP at term Delivery: , other (pubic diastases) Episiotomy: none Laceration: 3rd degree Incision: normal, intact Other procedures: other (PT R/T PUBIC DIASTASES) complications: other (Recieved PT and ortho consult r/t pubic diastases , Received infed and Fe r/t anemia) Discharge diagnosis: IUP at term delivered baby: female Hospital course: Pt was admitted to [facility] and had a . She suffered from pubic diastases and was seen by PT and an ortho surgeon. Pt dev anemia pp. She had Infed and was started on Fe. Pt was d/c'd home with a walker. She will receive PT at home per nurse case management and was advised to f/u with her OB. See h&p, delivery summary, and pp notes. Condition at discharge: Stable Disposition: 01 HOME / SELF CARE / HOMELESS Plan - Discharge Medications Prescriptions: Ibuprofen [Motrin 600 MG tab] 600 mg PO Q6H PRN #30 tablet PRN Reason: Menstrual Cramps - Provider Discharge Summary Activity: routine, no sex for 6 weeks, no heavy lifting 4 weeks, no strenuous exercise Diet: routine Instructions: routine Additional instructions: [] Smoking cessation referral if applicable(refer to patient education folder for contact #) [] Refer to [facility] Booklet Call your doctor immediately for: * Fever > 100.5 * Heavy vaginal bleeding ( >1 pad per hour) * Severe persistent headache * Shortness of breath * Reddened, hot, painful area to leg or breast * Drainage or odor from incision. * Keep incision clean and dry at all times and follow doctor's instructions regarding bathing/showering - Follow up plan Follow up: DOUG AVALOS MD [Primary Care Provider] - 6 Weeks Forms: C Discharge Summary
== END 2021-05-23 18:05 | disposition home or self-care (01) | DRG 768 ==
LOC: EDBD 19:45 → TRG 19:45 → APU 19:47 → TRG 23:41 → LD 05-19 01:49 → OBSVTOIN 05-19 01:49 → OB 05-20 04:58
PROVIDERS: ADMIT Obstetrics & Gynecology; ATTEND Obstetrics & Gynecology
PROC: 10H07YZ Insertion of Other Device into Products of Conception, Via Natural or Artificial Opening (ICD-10-PCS; 2021-05-19)
PROC: 10E0XZZ Delivery of Products of Conception, External Approach (ICD-10-PCS; principal; 2021-05-20)
PROC: 0DQR0ZZ Repair Anal Sphincter, Open Approach (ICD-10-PCS; 2021-05-20)
PROC: 3E0R3BZ Introduction of Anesthetic Agent into Spinal Canal, Percutaneous Approach (ICD-10-PCS; 2021-05-20)
PROC: 00HU33Z Insertion of Infusion Device into Spinal Canal, Percutaneous Approach (ICD-10-PCS; 2021-05-20)
DX: O69.81X0 Labor and delivery complicated by cord around neck, without compression, not applicable or unspecified (principal); Z37.0 Single live birth; Z3A.39 39 weeks gestation of pregnancy; O63.9 Long labor, unspecified; O70.20 Third degree perineal laceration during delivery, unspecified; Z20.822 Contact with and (suspected) exposure to COVID-19; O66.0 Obstructed labor due to shoulder dystocia; O90.81 Anemia of the puerperium; O99.891 Other specified diseases and conditions complicating pregnancy; R00.0 Tachycardia, unspecified
CPT/HCPCS: 36415; 72220; 73521; 76816; 76819; 80053; 81001; 84112; 85014; 85018; 85027; 86592; 86706; 86762; 86803; 86850; 86900; 86901; 87086; 87806; 88307; G0378; J0290; J0690; J1580; J1750; J2590; J3010; J7120; U0003